=== PATIENT | male | born 1970 | race Caucasian/White ===

== ENCOUNTER 2018-10-02 14:30 | Outpatient (REF) | payer BC, SELFPAY ==
[2018-10-02 21:22] LABS: Anion Gap 8.8 mmol/L (3-11); BUN 17 mg/dL (7-18); CO2 27.2 mmol/L (21.0-32.0); Calcium 9.4 mg/dL (8.5-10.1); Chloride 103 mmol/L (98-107); Glucose 186 mg/dL (70-100); Sodium 139 mmol/L (136-145)
[2018-10-02 21:27] LABS: Hemoglobin A1C 8.3 % (4.5-6.2)
== END 2018-10-02 14:50 ==
LOC: NCHCN 14:30
PROVIDERS: PCP Registered Nurse; Visit Provider Registered Nurse
DX: R73.03 Prediabetes (principal); E78.5 Hyperlipidemia, unspecified
CPT/HCPCS: 80048; 83036